=== PATIENT | female | born 1995 | race Caucasian/White ===

== ENCOUNTER → 2018-03-02 | Outpatient (CLI) | payer OTHER | LOC: M RAD 08:49 | DX: Z36.89 Encounter for other specified antenatal screening (principal); Z3A.19 19 weeks gestation of pregnancy | CPT/HCPCS: 76811 ==

== ENCOUNTER → 2018-11-15 | Outpatient (CLI) | payer OTHER ==
[2018-11-17 15:33] LABS: H PYLORI SERUM QUANT IGA <9.0 units (0.0-8.9); H PYLORI SERUM QUANT IGM <9.0 units (0.0-8.9); H PYLORI SERUM QUANT IgG ABY 0.21 (0.00-0.79)
== END ==
LOC: M WUC 14:16
PROVIDERS: ATTEND Family Medicine
DX: R10.13 Epigastric pain (principal)

== ENCOUNTER 2019-04-21 21:27 | Inpatient (IN) | payer OTHER ==
[~2019-04-21] VITALS: Ht 162.6 cm; Wt 77.4 kg
[2019-04-21 21:30] VITALS: BP 157/90
--- NOTE | 2019-04-21 21:52 | HPEPDOC ---
[facility] Medical History & Physical Date of Admission Apr 21, 2019 Date of Service: Apr 21, 2019 Attending Physician: MARVIN ALLISON MD History and Physical TIME OF SERVICE: 1030pm CHIEF COMPLAINT: abdominal pain HISTORY OF PRESENT ILLNESS: This is a 23 yr old F w a PMH of gall stones who was scheduled for elective surgery. This evening after eating fried chicken she developed burning diffuse abdominal that later localized to the left side and epigastric region, followed by sweating, nausea and two episodes of non-bloody emesis. Per d/w , the ED Attending at [facility], her WBC # was 11, Hg was 16.5, Plts were 207, Na was 137, K was 3.5, Cl was 98, Bicarb was 25, BUN was 12, Cr was 0.7, glucose was 124, lipase was >33908, ALT was 184, AST was 94, ALT was 261, and T bili was 1.3. The US of the gallbladder showed findings c/w acute cholecystitis and she was diagnosed w gallstone pancreatitis. He gave her PPI and Ceftriaxone and requested transfer here for surgical evaluation because the do not have surgeons at their facility this week. REVIEW OF SYSTEMS: 12 point review of systems negative except as listed in HPI PAST MEDICAL/ SURGICAL HISTORY: Chronic Asthma SOCIAL HISTORY: -Tobacco + FAMILY HISTORY: +gallstones s/p cholecystectomy (Aunt and Grandmother) ALLERGIES: Please see below. HOME MEDICATIONS: Please see below. PHYSICAL EXAMINATION: VITAL SIGNS: Please see below. GENERAL APPEARANCE: well nourished / well developed/ NAD / not toxic in apperance HEENT: NCAT / MMM&P CARDIOVASCULAR: RRR/NMRG LUNGS: CTAB on RA ABDOMEN: + BS / abdomen not distended / epigastric region tender w palpation / left upper abdomen + for rebound tenderness / neg alcaraz's sign MUSCULOSKELETAL: MEDHAT x 4 extremities INTEGUMENT: no bassett lin's sign, no will's sign NEUROLOGICAL: CN 2-12 grossly intact / speech not dysarthric PSYCHIATRIC: A&Ox 3 / able to understand and follow all commands LABORATORY DATA: see HPI IMAGING: see HPI MICROBIOLOGY: Please see below. ASSESSMENT: is a 23 yr old F w a PMH of gallstones and chronic asthma who will be admitted for management of gallstone pancreatitis. PLAN: 1. Gallstone Pancreatitis Plan: NPO/ IVF / f/u MRCP / f/u w General Surgeon / IV morphine PRN for pain / IV Zofran PRN for n/v / IV PPI 2. Chronic Asthma -patient reports that she has not had to use PRN inhalers for a long time Plan: Albuterol PRN DVT px w SCDs Dispo: pending clinical course. Home Medications Scheduled Omeprazole (Omeprazole) 20 Mg Tablet.dr, 20 MG PO DAILY Paroxetine HCl (Paxil) 20 Mg Tablet, 20 MG PO DAILY Allergies Coded Allergies: No Known Allergies (Unverified , 04/21/19) A-FIB/CHADSVASC A-FIB History Current/History of A-Fib/PAF?: No Current PO Anticoag Therapy: No MARVIN ALLISON MD Apr 21, 2019 21:52
[2019-04-21] MEDS ORDERED: PANTOPRAZOLE 40MG INJ (PROTONIX) (C9113) IV SCH (22:00)
[2019-04-21] MEDS: MORPHINE 4 MG/ML 1ML VIAL/SYRINGE (J2270) IV PRN (22:44)
[2019-04-21] MEDS: NS 1,000 ML IV SCH (22:44)
[2019-04-21] MEDS ORDERED: OMEP20TA9 PO (22:56)
[2019-04-21] MEDS ORDERED: PAXI20TA29 PO (22:56)
[2019-04-21] MEDS: ONDANSETRON 4MG/2ML VIAL (J2405) IV PRN (23:40)
[2019-04-22] VITALS: BP 140/82
[2019-04-22 04:00] VITALS: BP 157/88
[2019-04-22] MEDS: NS 1,000 ML IV SCH ×3 (04:25→20:05)
[2019-04-22] MEDS: MORPHINE 4 MG/ML 1ML VIAL/SYRINGE (J2270) IV PRN ×4 (04:26→20:06)
[2019-04-22 05:38] LABS: HEMATOCRIT 45.1 % (36.0-47.0); MEAN CORPUSCULAR HEMOGLOBIN 29.3 pg (27.0-33.0); MEAN CORPUSCULAR HGB CONC 33.3 g/dl (32.0-36.5); MEAN CORPUSCULAR VOLUME 88.1 fl (80.0-96.0); PLATELET COUNT, AUTOMATED 177 10^3/uL (150-450); RED BLOOD COUNT 5.12 10^6/uL (4.00-5.40); WHITE BLOOD COUNT 9.8 10^3/uL (4.0-10.0)
[2019-04-22 06:00] LABS: ALBUMIN 3.1 GM/DL (3.2-5.2); ALT/SGPT 194 U/L (12-78); BILIRUBIN,TOTAL 0.9 MG/DL (0.2-1.0); BLOOD UREA NITROGEN 10 MG/DL (7-18); CALCIUM LEVEL 8.1 MG/DL (8.5-10.1); CARBON DIOXIDE LEVEL 24 MEQ/L (21-32); CHLORIDE LEVEL 107 MEQ/L (98-107); CREATININE FOR GFR 0.64 MG/DL (0.55-1.30); GLOMERULAR FILTRATION RATE > 60.0 (>60); GLUCOSE, FASTING 102 MG/DL (70-100); MAGNESIUM LEVEL 1.6 MG/DL (1.8-2.4); POTASSIUM SERUM 3.5 MEQ/L (3.5-5.1); SODIUM LEVEL 141 MEQ/L (136-145); TOTAL PROTEIN 5.9 GM/DL (6.4-8.2)
[2019-04-22 07:33] VITALS: BP 140/73
--- NOTE | 2019-04-22 07:56 | IPNPDOC ---
Text Note Date of Service The patient was seen on 04/22/19. NOTE CHIEF COMPLAINT: abdominal pain Subjective: Patient seen and examined at bedside. No acute overnight events reported. Patient feels much better this morning. She is NPO. Objective: General: NAD, lying comfortably in bed HEENT: NC/AT, EOMI Lungs: CTA B/L Heart: +S1S2, RRR Abd: soft, RUQ tenderness, +BS Ext: no edema A/P: 23 yo female presents for gallstone pancreatitis, with PMHx of cholelithiasis, scheduled for elective lap choly 05/07/[address] Urbina. #Gallstone Pancreatitis - NPO/ IVF - f/u MRCP - f/u w General Surgeon - IV morphine PRN for pain / IV Zofran PRN for n/v / IV PPI #Chronic Asthma -patient reports that she has not had to use PRN inhalers for a long time -Albuterol PRN #DVT px w SCDs Dispo: pending clinical course. VS,Fishbone, I+O VS, Fishbone, I+O Laboratory Tests 04/22/19 05:12 Red Blood Count 5.12, Mean Corpuscular Volume 88.1, Mean Corpuscular Hemoglobin 29.3, Mean Corpuscular Hemoglobin Concent 33.3, Red Cell Distribution Width 12.5, Calcium Level 8.1 L, Aspartate Amino Transf (AST/SGOT) 49 H, Alanine Aminotransferase (ALT/SGPT) 194 H, Alkaline Phosphatase 138 H, Total Bilirubin 0.9, Total Protein 5.9 L, Albumin 3.1 L Vital Signs Date Time Temp Pulse Resp B/P (MAP) Pulse Ox O2 Delivery O2 Flow Rate FiO2 04/22/19 07:33 98.7 99 18 140/73 (95) 100 I&O- Last 24 Hours up to 6 AM 04/22/19 05:59 Intake Total 600 ml Output Total 250 ml Balance 350 ml LIZA ALMEIDA MD Apr 22, 2019 07:56
[2019-04-22] MEDS: PANTOPRAZOLE 40MG INJ (PROTONIX) (C9113) IV SCH (08:22)
[2019-04-22] MEDS: PARoxetine 20 MG TAB PO SCH (08:22)
[2019-04-22 08:48] LABS: LIPASE 13716 U/L (73-393)
[2019-04-22] MEDS ORDERED: PANTOPRAZOLE 40MG INJ (PROTONIX) (C9113) IV SCH (09:00)
[2019-04-22 11:41] VITALS: BP 121/70
[2019-04-22] MEDS: ONDANSETRON 4MG/2ML VIAL (J2405) IV PRN ×3 (12:19→20:05)
[2019-04-22] MEDS ORDERED: PROHANCE 279.3MG/ML 15ML VIAL (A9576) As Ordered ONE (13:00)
[2019-04-22 15:41] VITALS: BP 133/77
[2019-04-22 20:00] VITALS: BP 158/86
[2019-04-23] VITALS: BP 144/73
[2019-04-23] MEDS ORDERED: MAG SULF 1GM/100ML (MAG RUN) 1 GM in IV 1 EA IV ONE ×2 (01:00→02:00)
[2019-04-23] MEDS: NS 1,000 ML IV SCH ×3 (03:00→13:39)
[2019-04-23 04:00] VITALS: BP 143/81
[2019-04-23] MEDS: MORPHINE 4 MG/ML 1ML VIAL/SYRINGE (J2270) IV PRN (05:10)
[2019-04-23] MEDS: ONDANSETRON 4MG/2ML VIAL (J2405) IV PRN (05:10)
[2019-04-23 06:11] LABS: ALBUMIN 3.1 GM/DL (3.2-5.2); ALT/SGPT 147 U/L (12-78); BILIRUBIN,TOTAL 0.9 MG/DL (0.2-1.0); BLOOD UREA NITROGEN 6 MG/DL (7-18); CARBON DIOXIDE LEVEL 26 MEQ/L (21-32); CHLORIDE LEVEL 105 MEQ/L (98-107); CREATININE FOR GFR 0.56 MG/DL (0.55-1.30); GLOMERULAR FILTRATION RATE > 60.0 (>60); GLUCOSE, FASTING 74 MG/DL (70-100); LIPASE 3121 U/L (73-393); MAGNESIUM LEVEL 2.3 MG/DL (1.8-2.4); POTASSIUM SERUM 3.3 MEQ/L (3.5-5.1); SODIUM LEVEL 140 MEQ/L (136-145); TOTAL PROTEIN 6.4 GM/DL (6.4-8.2)
--- NOTE | 2019-04-23 06:46 | CR ---
DATE OF CONSULTATION: 04/22/2019 REASON FOR CONSULTATION: Cholelithiasis with gallstone pancreatitis. HISTORY OF PRESENT ILLNESS: The patient is a pleasant 23-year-old woman with known gallstones. She had seen my partner Dr. Urbina on 04/17/2019 in the office. She was scheduled for a laparoscopic cholecystectomy electively on 05/07/2019. The patient following a meal on the afternoon of 04/21/2019, developed severe upper abdominal pain with some nausea and vomiting. She was seen at [facility] where she was found to have a markedly elevated lipase level and a CT scan showed significant edema of the pancreas with some free abdominal fluid. She was transferred to [facility] where she was admitted by one of the hospitalists. I am now asked to evaluate the patient regarding her gallstone pancreatitis. ALLERGIES: The patient denies any known allergies to medications. MEDICATIONS: Her only regular medications are omeprazole and paroxetine. PAST SURGICAL HISTORY: The patient has had no prior surgery. MEDICAL HISTORY: Significant for asthma. SOCIAL HISTORY: She is and has two children. She denies any tobacco use. FAMILY HISTORY: Significant for cholelithiasis in her aunt and grandmother. REVIEW OF SYSTEMS: Reveals no history of cardiac, respiratory or GI symptoms other than those associated with her gallstones and her asthma. She denies any dysuria or hematuria. She has no history of deep vein thrombosis (DVT) or pulmonary embolus. She has no other active medical issues. PHYSICAL EXAMINATION: Reveals a pleasant young woman with mild to moderate obesity. She is alert and oriented. She is lying quietly on the hospital bed with one of her children when I came to see her. Sclerae are anicteric. Neck is supple without mass. Heart exam shows a regular rhythm which is not tachycardiac. The lungs are clear. The abdomen is somewhat protuberant. She has some bowel sounds present. She has some mild to moderate direct tenderness in the epigastrium. LABORATORY STUDIES: From last night include a lipase that was greater than 28,000. The white count was 11, hemoglobin was 16 and platelets were 207,000. Her total bilirubin was 1.3 and her AST and ALT were 94 and 261. This morning, her lipase is down to 13,700. LFTs are not significantly changed. IMPRESSION: The patient clearly has pancreatitis based on the CT findings and her marked elevation of the lipase. She has known gallstones. Therefore, it is reasonable to assume that the pancreatitis is due to the gallstones as she has no other evident risk factors. PLAN: I would agree with the scheduled MRI/MRCP to look for evidence of retained common bile duct stones. If common bile duct stones are identified, then an ERCP is warranted. If there are no stones seen in the bile duct then it is only a matter of waiting until her pancreatitis resolves to a point where cholecystectomy would be reasonable. I suspect that given the degree of hyperlipasemia and edema of the pancreas seen by CT that we will wish to wait for more than just a few days for her pancreatitis to resolve. I will speak with Dr. Urbina who had seen the patient in the office to see if he would be willing to assume her care as I will be going out of town here in the next 2 days.
[2019-04-23 07:38] VITALS: BP 139/61
[2019-04-23] MEDS: PARoxetine 20 MG TAB PO SCH (07:49)
[2019-04-23] MEDS: PANTOPRAZOLE 40MG INJ (PROTONIX) (C9113) IV SCH (07:50)
--- NOTE | 2019-04-23 08:07 | REP ---
MRCP: MRCP examination is accomplished utilizing multiple heavily T2 weighted sequences in the axial and coronal planes with MIP reconstruction images. Comparison is made with prior ultrasound at [facility] 03/26/2019. The gallbladder demonstrates multiple filling defects in the dependant portion consistent with multiple gallstones. The largest measures 9 mm. Gallbladder wall is 3 mm, at the upper limits of normal. There is no intrahepatic or extrahepatic biliary dilatation. Common bile duct has a maximum diameter of 4 mm. There is no evidence of choledocholithiasis. The is no pancreatic duct dilatation. There is mild free fluid scattered throughout the abdomen. In addition there is ill-defined high signal throughout the pancreas suggesting pancreatitis. Otherwise the visualized portions of the liver, spleen, adrenals, and kidneys are unremarkable. No definite adenopathy is seen. IMPRESSION: Multiple subcentimeter gallstones in the gallbladder. Gallbladder wall is upper limits of normal in thickness. No intrahepatic or extrahepatic biliary dilatation and no evidence of choledocholithiasis. Diffuse ill-defined high signal on T2 weighted images throughout the pancreas suggests pancreatitis. Mild scattered free fluid throughout the abdomen. Electronically Signed by Reginaldo Nixon MD 04/24/2019 10:11 A
--- NOTE | 2019-04-23 08:27 | REP ---
MRI ABDOMEN WITH AND WITHOUT CONTRAST: TECHNIQUE: Multiple sequences were obtained in the axial and coronal planes prior to and following the intravenous administration of 14 mL ProHance. No mass is seen in the visualized liver. The spleen is normal in size with no intrinsic abnormality. The adrenals and kidneys are unremarkable. There is no hydronephrosis. There is mild diffuse enlargement of the pancreas with ill defined high signal on T2 weighted images scattered throughout the pancreatic parenchyma compatible with pancreatitis. No pancreatic duct dilatation is seen. Gallbladder demonstrates multiple subcentimeter stones in the lumen. The gallbladder wall was not significantly thickened. Common bile duct is not dilated. There is no evidence of choledocholithiasis. There is mild scattered free fluid throughout the abdomen. There is no evidence of adenopathy. IMPRESSION: Findings compatible with pancreatitis. There is mild ascites in the abdomen. Multiple subcentimeter gallstones in the gallbladder. No biliary dilatation or evidence of choledocholithiasis. Electronically Signed by Reginaldo Nixon MD 04/24/2019 10:46 A
[2019-04-23 11:54] VITALS: BP 135/82
[2019-04-23] MEDS ORDERED: oxyCODONE 5MG TAB PO PRN (14:00)
--- NOTE | 2019-04-23 14:02 | IPNPDOC ---
Text Note Date of Service The patient was seen on 04/23/19. NOTE Subjective: -Continues to have moderate epigastric pain and nervous about eating and the plan of a discharge home before cholecystectomy as she is anxious that she will be just back here if she eats ROS: -Pertinent positives: Much improved but still present now mild epigastric pain -Pertinent negatives: No fever, chills, nausea, emesis Objective: General: well appearing, pleasant, conversing comfortably with spouse who was at bedside Eyes: Anicteric Skin: no jaundice Pulm: CTAB, no rales, rhonchi or wheezing Cardiac: S1S2, RRR, no murmurs, rubs or gallops Abdomen: Baseline distention (per patient), normoactive bowel sounds, tender epigastrum on deep palpation, otherwise negative Sharpe's, no hepatosplenomegaly Extremities: WWP, no edema Assessment: 23 yo woman who is admitted for gallstone pancreatitis, with PMHx of cholelithiasis, scheduled for elective lap audra 05/07/[address] Urbina but wanted to discuss with surgeon the possibility of predischarge audra. #Gallstone Pancreatitis - f/u offical MRCP read, prelim with no evidence of choledocholithiasis - f/u w General Surgeon outpatient - Switch IV morphine PRN to 5mg PO PRN - Will plan for [id number] discharge home given no evidence of ductal stones and no indication of ERCP. - DC IV protonix, continue PRN zofran #Chronic Asthma -patient reports that she has not had to use PRN inhalers for a long time -Albuterol PRN #DVT px w SCDs Dispo: pending clinical course and patient discussion with surgeon per patient request, will otherwise plan for AM discharge 04/24. VS,Fishbone, I+O VS, Fishbone, I+O Laboratory Tests 04/23/19 05:08 Calcium Level 8.0 L, Aspartate Amino Transf (AST/SGOT) 36, Alanine Aminotransferase (ALT/SGPT) 147 H, Alkaline Phosphatase 124 H, Total Bilirubin 0.9, Total Protein 6.4, Albumin 3.1 L Vital Signs Date Time Temp Pulse Resp B/P (MAP) Pulse Ox O2 Delivery O2 Flow Rate FiO2 04/23/19 11:54 97.7 96 18 135/82 (99) 98 I&O- Last 24 Hours up to 6 AM 04/23/19 06:00 Intake Total 3200 ml Output Total 1700 ml Balance 1500 ml ANURADHA PICKARD MD Apr 23, 2019 14:02
[2019-04-23 15:55] VITALS: BP 141/80
[2019-04-23] MEDS ORDERED: POTASSIUM CHLORIDE 10 MEQ SR TABLET PO ONE (16:00)
[2019-04-23 20:00] VITALS: BP 132/78
[2019-04-24 04:00] VITALS: BP 135/75
[2019-04-24 06:01] LABS: ALBUMIN 3.2 GM/DL (3.2-5.2); ALT/SGPT 116 U/L (12-78); BILIRUBIN,TOTAL 1.1 MG/DL (0.2-1.0); BLOOD UREA NITROGEN 7 MG/DL (7-18); CALCIUM LEVEL 8.5 MG/DL (8.5-10.1); CARBON DIOXIDE LEVEL 21 MEQ/L (21-32); CHLORIDE LEVEL 105 MEQ/L (98-107); CREATININE FOR GFR 0.52 MG/DL (0.55-1.30); GLOMERULAR FILTRATION RATE > 60.0 (>60); GLUCOSE, FASTING 62 MG/DL (70-100); POTASSIUM SERUM 3.5 MEQ/L (3.5-5.1); SODIUM LEVEL 138 MEQ/L (136-145); TOTAL PROTEIN 6.6 GM/DL (6.4-8.2)
[2019-04-24 08:00] VITALS: BP 143/84
[2019-04-24] MEDS: PARoxetine 20 MG TAB PO SCH (08:26)
[2019-04-24] MEDS ORDERED: SLF 3 ML SYR IV PRN (09:00)
[2019-04-24 09:28] LABS: LIPASE 467 U/L (73-393)
[2019-04-24] MEDS: SLF 3 ML SYR IV SCH ×2 (14:51→21:04)
--- NOTE | 2019-04-24 15:24 | IPNPDOC ---
Text Note Date of Service The patient was seen on 04/24/19. NOTE Subjective: -Feels well this morning -Excited that she will be having her lap audra tomorrow morning per surgery ROS: -Pertinent positives: mild epigastric pain -Pertinent negatives: No fever, chills, nausea, emesis The 12 point ROS was reviewed and was otherwise negative except for the mild epigastric pain mentioned above Objective: General: well appearing, pleasant, conversant Eyes: Anicteric, no pallor Skin: no jaundice Pulm: CTAB, no rales, rhonchi or wheezing Cardiac: S1S2, RRR, no murmurs, rubs or gallops Abdomen: normoactive bowel sounds, tender epigastrum on deep palpation, no organomegaly Extremities: WWP, no edema Assessment: 23 yo woman who was admitted for gallstone pancreatitis, with PMHx of cholelithiasis with much improved symptoms and labs now tentatively scheduled for elective lap audra tomorrow morning. #Gallstone Pancreatitis -much improved, no symptoms and labs downtrended -plan for lap audra tomorrow -NPO at midnight, currently on clear liquid diet #Chronic Asthma -Albuterol PRN #DVT px w SCDs Dispo: pending lap audra VS,Fishbone, I+O VS, Fishbone, I+O Laboratory Tests 04/24/19 05:12 Calcium Level 8.5, Aspartate Amino Transf (AST/SGOT) 28, Alanine Aminotransferase (ALT/SGPT) 116 H, Alkaline Phosphatase 110, Total Bilirubin 1.1 H, Total Protein 6.6, Albumin 3.2 Vital Signs Date Time Temp Pulse Resp B/P (MAP) Pulse Ox O2 Delivery O2 Flow Rate FiO2 04/24/19 08:00 96.5 103 18 143/84 (103) 97 I&O- Last 24 Hours up to 6 AM 04/24/19 06:00 Intake Total 1320 ml Output Total 1400 ml Balance -80 ml ANURADHA PICKARD MD Apr 24, 2019 15:24
[2019-04-24 15:35] VITALS: BP 147/97
[2019-04-24 18:30] LABS: URINE PREG TEST NEGATIVE (NEGATIVE)
--- NOTE | 2019-04-24 19:36 | IPN ---
DATE: 04/23/2019 The patient seems to clinically be doing much better than she was and we will start her on a clear liquid diet. Overall, her chemistries appear better than they were yesterday with her lipase dropping down nicely. Her abdominal pain is much better and she only has some minimal discomfort. She has been afebrile and otherwise, no other complaints at this time. PHYSICAL EXAMINATION: Her abdomen is soft, nondistended, mildly tender in the midepigastric area without significant rebound or peritoneal signs. Extremities are warm and well-perfused. IMPRESSION AND PLAN: The patient has evidence of resolving gallstone pancreatitis and we will see how she is doing tomorrow. If she is doing well, we may consider her for a laparoscopic cholecystectomy prior to discharge or continue with her planned laparoscopic cholecystectomy on 05/07/2019. In any case, we will once again see how she does with clear liquids overnight and then determine our next course of action tomorrow.
--- NOTE | 2019-04-24 19:39 | IPN ---
DATE: 04/24/2019 The patient continues to make some significant improvement and overall, her lipase continues to plummet down to 467 and I anticipate tomorrow it should be within normal range. She has been afebrile and she overall has no abdominal complaints. She states she has minimal discomfort at this point in the mid epigastric area but otherwise feels pretty good and was hoping that we would proceed with a laparoscopic cholecystectomy prior to discharge instead of being discharged home and she has concerns that she might have recurrence of pancreatitis. IMPRESSION AND PLAN: The patient seems to be doing well at this point and given her significant progress and improvement of her abdominal pain, I do feel that it is reasonable to proceed with a laparoscopic cholecystectomy. We will schedule her tomorrow for a laparoscopic cholecystectomy. The risks as well as benefits have been discussed with her at length, those including but not limited to infection, bleeding, damage to surrounding structures including liver, pancreas, bile ducts, duodenum, bowel, and with worsening pancreatitis, etcetera. She understands and would like proceed with this as scheduled. We will make sure that she is nothing by mouth after midnight and we will plan on giving a preoperative dose of antibiotics.
[2019-04-24 22:36] VITALS: BP 138/92
[2019-04-25] MEDS: SLF 3 ML SYR IV SCH (06:00)
[2019-04-25 06:27] LABS: ALBUMIN 3.5 GM/DL (3.2-5.2); ALT/SGPT 97 U/L (12-78); BLOOD UREA NITROGEN 5 MG/DL (7-18); CARBON DIOXIDE LEVEL 21 MEQ/L (21-32); CHLORIDE LEVEL 102 MEQ/L (98-107); CREATININE FOR GFR 0.58 MG/DL (0.55-1.30); GLOMERULAR FILTRATION RATE > 60.0 (>60); GLUCOSE, FASTING 79 MG/DL (70-100); POTASSIUM SERUM 3.3 MEQ/L (3.5-5.1); SODIUM LEVEL 135 MEQ/L (136-145); TOTAL PROTEIN 7.7 GM/DL (6.4-8.2)
[2019-04-25 07:18] VITALS: BP_SYST 128; BP_SYST 133; BP_DIAS 80
[2019-04-25] MEDS ORDERED: KCL 10MEQ/100ML SWI (KRUN) 10 MEQ in IV 1 EA IV ONE (08:15)
[2019-04-25] MEDS ORDERED: ONDANSETRON 4MG/2ML VIAL (J2405) As Ordered ONE (09:57)
[2019-04-25] MEDS ORDERED: KETOROLAC 60 MG/2 ML VIAL (J1885) As Ordered ONE (09:57)
[2019-04-25] MEDS ORDERED: SUGAMMADEX SODIUM 500 MG/5 ML VIAL (BRIDION) As Ordered ONE (09:57)
[2019-04-25] MEDS ORDERED: LIDOCAINE 2% INJ 100 MG/5 ML SDV (FOR ANES.) As Ordered ONE (09:57)
[2019-04-25] MEDS ORDERED: propofoL 200 MG/20 ML VIAL As Ordered ONE (09:57)
[2019-04-25] MEDS ORDERED: fentaNYL 250 MCG/5 ML INJECTION (J3010) As Ordered ONE (09:57)
[2019-04-25] MEDS ORDERED: dexameTHASONE 4 MG/ML 1ML VIAL (J1100) As Ordered ONE (09:57)
[2019-04-25] MEDS ORDERED: MIDAZOLAM INJ 2 MG/2 ML VIAL (J2250) As Ordered ONE (09:57)
[2019-04-25] MEDS ORDERED: ACETAMINOPHEN 1000MG 100ML IV BTL (OFIRMEV) (J0131 PER 10MG) As Ordered ONE (09:57)
[2019-04-25] MEDS ORDERED: ROCURONIUM BROMIDE 50 MG/5 ML VIAL As Ordered ONE (09:57)
[2019-04-25] MEDS ORDERED: PHENYLephrine HCL 500 MCG/5 ML (100MCG/ML) SYRINGE (J2370) As Ordered ONE (10:05)
[2019-04-25] MEDS ORDERED: BUPIVACAINE/EPIN 0.25% 30 ML VIAL As Ordered ONE (10:41)
[2019-04-25] MEDS ORDERED: ceFAZolin 2 GM/D5W 50 ML IV BAG (J0690 PER 500MG) As Ordered ONE (10:42)
[2019-04-25] MEDS ORDERED: NORCO, ANEXSIA 5/325MG TABLET (HYDROcodone/ACETAMINOPHEN) PO PRN (10:45)
[2019-04-25 11:30] VITALS: BP 124/68
[2019-04-25 12:00] VITALS: BP 121/68
[2019-04-25] MEDS: PARoxetine 20 MG TAB PO SCH (12:34)
[2019-04-25] MEDS ORDERED: IBUP-1022 PO (12:56)
[2019-04-25] MEDS ORDERED: HYDR-4571 PO (12:56)
[2019-04-25 13:00] VITALS: BP 121/69
[2019-04-25] MEDS ORDERED: IBUPROFEN 600 MG TAB PO SCH (16:00)
--- NOTE | 2019-04-26 20:49 | DS.PDOC ---
Discharge Summary General Date of Admission Apr 21, 2019 at 21:27 Date of Discharge 04/25/2019 Attending Physician: ANURADHA PICKARD MD Specialist/Consultants Involve: Itz Urbina Jr Discharge Summary PROCEDURES PERFORMED DURING STAY: laparoscopic cholecystectomy ADMITTING DIAGNOSES: 1. Acute pancreatitis DISCHARGE DIAGNOSES: 1. Acute gallstone pancreatitis 2. Cholecystitis 3. Asthma COMPLICATIONS/CHIEF COMPLAINT: Acute Pancreatitis. HISTORY OF PRESENT ILLNESS: 23 yr old woman with a history of gall stones who was scheduled for elective surgery but before she could have it, one evening after eating fried chicken she developed acute burning diffuse abdominal that later localized to the left side and epigastric region, followed by sweating, nausea and two episodes of non-bloody emesis. She presented to the [facility] ED where her WBC was 11 and lipase was >03303, ALT 184, AST 94, ALT 261, and T bili was 1.3. An US of the gallbladder showed findings consistent with acute cholecystitis and she was diagnosed with gallstone pancreatitis. While at [facility] she was given protonix and Ceftriaxone and requested transfer here for surgical evaluation because the did not have surgeons at their facility during that time. HOSPITAL COURSE: At [facility], she was admitted to internal medicine and surgery was consulted. A decision was made to pursue an MRI/MRCP to look for evidence of retained common bile duct stones with a plan that if common bile duct stones were identified, then they would proceed with an ERCP and if they were not present, then they would wait until her pancreatitis resolves to a point where cholecystectomy would be reasonable. Her pancreatitis was thus managed with aggressive fluids and NPO status with mild pain control. She improved over a few days and her labs improved as well to the extent that the decision was made to proceed with cholecystectomy predischarge. She had an uncomplicated lap audra on 04/25/2019 and is now being discharged home a few hours after surgery. DISCHARGE MEDICATIONS: Please see below. ALLERGIES: Please see below. PHYSICAL EXAMINATION ON DISCHARGE: VITAL SIGNS: Please see below. General: well appearing, pleasant, conversant Eyes: Anicteric, no pallor Skin: no jaundice Pulm: CTAB, no rales, rhonchi or wheezing Cardiac: S1S2, RRR, no murmurs, rubs or gallops Abdomen: normoactive bowel sounds, tender epigastrum on deep palpation, no org anomegaly Extremities: WWP, no edema LABORATORY DATA: Please see below. IMAGIN04/22/2019: MRI abdomen: Findings compatible with pancreatitis. There is mild ascites in the abdomen. Multiple subcentimeter gallstones in the gallbladder. No biliary dilatation or evidence of choledocholithiasis PROGNOSIS: Excellent ACTIVITY: as tolerated DIET: as tolerated DISCHARGE PLAN: Home to follow up outpatient with PCP and Dr. Urbina DISPOSITION: 01 Home, Self-Care. DISCHARGE INSTRUCTIONS: 1. To follow up with Dr. Urbina and your PCP within 2 weeks ITEMS TO FOLLOWUP ON ON OUTPATIENT: 1. Post lap audra follow up 2. PCP follow up DISCHARGE CONDITION: Good TIME SPENT ON DISCHARGE: Greater than 30 minutes. Vital Signs/I&Os Vital Signs Date Time Temp Pulse Resp B/P (MAP) Pulse Ox O2 Delivery O2 Flow Rate FiO2 04/25/19 13:00 98.6 95 19 121/69 (86) 99 I&O- Last 24 Hours up to 6 AM 04/26/19 06:00 Intake Total 780 ml Output Total 10 ml Balance 770 ml Discharge Medications Scheduled Ibuprofen (Ibuprofen) 600 Mg Tablet, 600 MG PO TID Omeprazole (Omeprazole) 20 Mg Tablet.dr, 20 MG PO DAILY, (Reported) Paroxetine HCl (Paxil) 20 Mg Tablet, 20 MG PO DAILY, (Reported) Scheduled PRN Hydrocodone/Acetaminophen (Hydrocodone-Acetamin 5-325 mg) 1 Each Tablet, 1 TAB PO Q4HP PRN for MILD/MODERATE PAIN (PS 1-7) Allergies Coded Allergies: apple (Verified Allergy, Intermediate, MOUTH SWELLING/ITCHING, 04/22/19) strawberry (Verified Allergy, Intermediate, mouth swelling and itching, 04/22/19) ANURADHA PICKARD MD Apr 26, 2019 20:49
--- NOTE | 2019-05-10 10:49 | RO ---
DATE OF PROCEDURE: 04/25/2019 PREOPERATIVE DIAGNOSIS: Gallstone pancreatitis. POSTOPERATIVE DIAGNOSIS: Gallstone pancreatitis. PROCEDURE: Laparoscopic cholecystectomy. SURGEON: Dr. Itz Urbina. BUNDLE PERSON: ANESTHESIA: General endotracheal anesthesia. ESTIMATED BLOOD LOSS: Minimal. FLUIDS: Crystalloid. DESCRIPTION OF PROCEDURE: The patient was brought to the operating room and was given general anesthesia. After adequate anesthesia and preoperative antibiotics were given, the patient was prepped and draped in sterile fashion. Next a supraumbilical incision was made with skin knife. Blunt dissection was carried down to fascia. Veress needle placed into the abdominal cavity insufflated to 15 mm pressure and a dilating 10 mm trocar was placed. Under direct visualization an epigastric and two lateral trocars were placed. Gallbladder was grasped, retracted superiorly and then the neck of the gallbladder was cleared of peritoneum on the lateral aspect across the anterior surface and medial as well. The neck of the gallbladder was then further cleared of surrounding structures using some minimal blunt dissection as well as electrocautery and the hook cautery and eventually the cystic duct, cystic artery was well visualized and then a better window behind the neck of the gallbladder was created up to the cystic plate area. The cystic artery was clipped proximally and distally and transected and then the neck of the gallbladder and the cystic duct area was further dissected out and the cystic duct was clipped proximally and distally and transected and the gallbladder was taken from the gallbladder bed using electrocautery. This was placed in an EndoCatch bag brought out through the umbilicus. The right upper quadrant was copiously irrigated until clear. All trocars removed under direct visualization. 0 Vicryl was used close fascia at the umbilicus and all incisions were closed with #4-0 Vicryl. Steri-Strips and dry sterile dressing was applied. The patient was awakened from anesthesia, extubated, brought to the recovery room awake, alert and hemodynamically stable. Sponge and needle counts correct times two.
== END 2019-04-25 14:15 | disposition home or self-care (01) | DRG 263 ==
LOC: M PCU 21:27 → M MS5PR 04-24 15:35
PROVIDERS: ADMIT Internal Medicine; ATTEND Internal Medicine
PROC: 0FT44ZZ Resection of Gallbladder, Percutaneous Endoscopic Approach (ICD-10-PCS; principal; 2019-04-25 09:30)
DX: K80.00 Calculus of gallbladder with acute cholecystitis without obstruction (principal); K85.90 Acute pancreatitis without necrosis or infection, unspecified; J45.909 Unspecified asthma, uncomplicated; Z91.038 Other insect allergy status

== ENCOUNTER 2021-04-23 17:37 | Emergency (ER) | payer OTHER ==
[~2021-04-23] VITALS: Ht 162.6 cm; Wt 93.6 kg
[~2021-04-23 17:37] MED LIST: HYDR-4571 PO; IBUP-1022 PO; OMEP20TA2 PO; PAXI20TA29 PO
[2021-04-23 18:42] LABS: BASO % 0.2 % (0.0-1.0); EOS # 0.1 10^3/uL (0.0-0.5); EOS % 0.6 % (0.0-3.0); HEMATOCRIT 44.6 % (36.0-47.0); HEMOGLOBIN 15.1 g/dl (12.0-15.5); LYMPH # 1.6 10^3/uL (1.5-5.0); MEAN CORPUSCULAR HEMOGLOBIN 29.4 pg (27.0-33.0); MEAN CORPUSCULAR HGB CONC 33.9 g/dl (32.0-36.5); MEAN CORPUSCULAR VOLUME 86.9 fl (80.0-96.0); MONO # 0.5 10^3/uL (0.0-0.8); MONO % 5.4 % (2.0-8.0); NEUTROPHILS # 7.5 10^3/uL (1.5-8.5); NEUTROPHILS % 77.6 % (36.0-66.0); PLATELET COUNT, AUTOMATED 192 10^3/uL (150-450); RED BLOOD COUNT 5.13 10^6/uL (4.00-5.40); WHITE BLOOD COUNT 9.7 10^3/uL (4.0-10.0)
[2021-04-23 19:15] LABS: ALBUMIN 4.2 GM/DL (3.2-5.2); ALT/SGPT 31 U/L (12-78); BILIRUBIN,DIRECT 0.1 MG/DL (0.0-0.2); BILIRUBIN,TOTAL 0.3 MG/DL (0.2-1.0); BLOOD UREA NITROGEN 8 MG/DL (7-18); CALCIUM LEVEL 8.9 MG/DL (8.5-10.1); CARBON DIOXIDE LEVEL 28 MEQ/L (21-32); CHLORIDE LEVEL 107 MEQ/L (98-107); CK-MB VALUE MASS < 1.0 NG/ML (<3.6); CPK CREATINE PHOSPHOKINASE 122 U/L (26-192); CREATININE FOR GFR 0.72 MG/DL (0.55-1.30); GLOMERULAR FILTRATION RATE > 60.0 (>60); GLUCOSE, FASTING 102 MG/DL (70-100); LIPASE 118 U/L (73-393); MB/CK RELATIVE INDEX 0.82 (< OR =4); POTASSIUM SERUM 3.9 MEQ/L (3.5-5.1); SODIUM LEVEL 141 MEQ/L (136-145); TOTAL PROTEIN 7.6 GM/DL (6.4-8.2); TROPONIN I < 0.02 NG/ML (< 0.10)
[2021-04-23 20:30] VITALS: BP 124/78
--- NOTE | 2021-04-25 19:48 | ECGEPIP ---
[facility] - ED Test Date: 2021-04-23 Pat Name: MADAY QUINTANA Department: Room: - Gender: Female [employer]: Elida REEDER : 1995 Requested By: REID IRVIN Order Number: [id number] Reading MD: Kiki Feliciano Measurements Intervals [place] Rate: 77 P: 49 VT: 130 QRS: 59 QRSD: 90 T: 23 QT: 396 QTc: 448 Interpretive Statements Normal sinus rhythm No prior Electronically Signed on 04-25-2021 19:48:16 EDT by Kiki Feliciano
== END 2021-04-23 20:43 | disposition home or self-care (01) ==
LOC: M ED 17:37
DX: F41.0 Panic disorder [episodic paroxysmal anxiety] (principal); R07.9 Chest pain, unspecified; Z91.018 Allergy to other foods

== ENCOUNTER → 2021-09-29 | Outpatient (CLI) | payer OTHER | LOC: M WUC 11:15 | PROVIDERS: ATTEND Internal Medicine Gastroenterology | DX: R10.9 Unspecified abdominal pain (principal) ==

== ENCOUNTER 2021-11-29 10:41 | Day surgery (SDC) | payer MEDICAID ==
[~2021-11-29] VITALS: Ht 162.6 cm; Wt 100.7 kg
[~2021-11-29 10:41] MED LIST changes: +CLON0.5T2; +NS 1,000 ML IV ONE
[2021-11-29] MEDS ORDERED: propofoL 200 MG/20 ML VIAL As Ordered ONE (12:42)
[2021-11-29] MEDS ORDERED: LIDOCAINE 2% 100MG/5ML SDV (FOR ANES.) As Ordered ONE (12:42)
[2021-11-29] MEDS ORDERED: fentaNYL 100 MCG/2 ML INJECTION As Ordered ONE (12:42)
[2021-11-29 13:40] VITALS: BP 127/73
== END 2021-11-29 13:53 | disposition home or self-care (01) ==
LOC: M OPP 10:41
PROVIDERS: ATTEND Internal Medicine Gastroenterology
DX: K29.50 Unspecified chronic gastritis without bleeding (principal); R10.13 Epigastric pain; Z79.899 Other long term (current) drug therapy; Z91.018 Allergy to other foods
CPT/HCPCS: 43239; 88305; J3010

== ENCOUNTER → 2023-11-16 | Outpatient (REF) | payer OTHER ==
[~2023-11-16] MED LIST changes: -NS 1,000 ML IV ONE; -PAXI20TA29 PO; +PAXI20TA30 PO
== END ==
LOC: M PLALAB 15:46
PROVIDERS: ATTEND Advanced Practice Midwife
DX: O26.859 Spotting complicating pregnancy, unspecified trimester (principal); Z3A.00 Weeks of gestation of pregnancy not specified

== ENCOUNTER → 2023-11-16 | Outpatient (CLI) | payer OTHER ==
[2023-11-16 17:58] LABS: HEMATOCRIT 41.2 % (36.0-47.0); HEMOGLOBIN 13.9 g/dl (12.0-15.5); MEAN CORPUSCULAR HEMOGLOBIN 29.6 pg (27.0-33.0); MEAN CORPUSCULAR HGB CONC 33.7 g/dl (32.0-36.5); MEAN CORPUSCULAR VOLUME 87.8 fl (80.0-96.0); PLATELET COUNT, AUTOMATED 163 10^3/uL (150-450); RED BLOOD COUNT 4.69 10^6/uL (4.00-5.40); WHITE BLOOD COUNT 11.7 10^3/uL (4.0-10.0)
[2023-11-16 18:37] LABS: HIV 1&2 SCREEN NEGATIVE (NEGATIVE)
[2023-11-16 18:46] LABS: HEPATITIS C VIRUS ABY INDEX < 0.02 INDEX (<0.8)
[2023-11-16 19:53] LABS: GC DNA AMPLIFICATION NEGATIVE (NEGATIVE)
== END ==
LOC: M PLALAB 15:48
PROVIDERS: ATTEND Advanced Practice Midwife
DX: Z34.81 Encounter for supervision of other normal pregnancy, first trimester (principal); Z3A.00 Weeks of gestation of pregnancy not specified

== ENCOUNTER → 2023-12-14 | Outpatient (REF) | payer OTHER | LOC: M PLALAB 10:54 | PROVIDERS: ATTEND Advanced Practice Midwife | DX: Z34.82 Encounter for supervision of other normal pregnancy, second trimester (principal) ==

== ENCOUNTER → 2024-01-22 | Outpatient (CLI) | payer OTHER | LOC: M WHC 10:13 | PROVIDERS: ATTEND Advanced Practice Midwife | DX: Z34.82 Encounter for supervision of other normal pregnancy, second trimester (principal); Z3A.19 19 weeks gestation of pregnancy ==

== ENCOUNTER → 2024-03-01 | Outpatient (CLI) | payer OTHER | LOC: M WHC 12:09 | PROVIDERS: ATTEND Advanced Practice Midwife | DX: O99.342 Other mental disorders complicating pregnancy, second trimester (principal); Z3A.25 25 weeks gestation of pregnancy ==

== ENCOUNTER → 2024-03-07 | Outpatient (CLI) | payer OTHER ==
[2024-03-07 14:12] LABS: HEMATOCRIT 37.1 % (36.0-47.0); HEMOGLOBIN 12.4 g/dl (12.0-15.5); MEAN CORPUSCULAR HEMOGLOBIN 30.3 pg (27.0-33.0); MEAN CORPUSCULAR HGB CONC 33.4 g/dl (32.0-36.5); MEAN CORPUSCULAR VOLUME 90.7 fl (80.0-96.0); PLATELET COUNT, AUTOMATED 157 10^3/uL (150-450); RED BLOOD COUNT 4.09 10^6/uL (4.00-5.40); WHITE BLOOD COUNT 8.2 10^3/uL (4.0-10.0)
[2024-03-07 14:35] LABS: GLUCOSE CHALLENGE TEST 1 HOUR 121 MG/DL (LESS THAN 140)
[2024-03-07 15:11] LABS: HIV 1&2 SCREEN NEGATIVE (NEGATIVE)
== END ==
LOC: M PLALAB 10:42
PROVIDERS: ATTEND Advanced Practice Midwife
DX: O99.342 Other mental disorders complicating pregnancy, second trimester (principal); Z3A.00 Weeks of gestation of pregnancy not specified

== ENCOUNTER → 2024-05-14 | Outpatient (CLI) | payer OTHER | LOC: M WHC 08:16 | PROVIDERS: ATTEND Advanced Practice Midwife | DX: O26.843 Uterine size-date discrepancy, third trimester (principal); Z3A.36 36 weeks gestation of pregnancy ==

== ENCOUNTER → 2024-05-17 | Outpatient (REF) | payer OTHER | LOC: M SFHCWAGY 16:53 | PROVIDERS: ATTEND Obstetrics & Gynecology | DX: Z36.85 Encounter for antenatal screening for Streptococcus B (principal); Z3A.36 36 weeks gestation of pregnancy ==

== ENCOUNTER 2024-06-13 09:47 | Inpatient (IN) | payer OTHER ==
[~2024-06-13] VITALS: Ht 162.6 cm; Wt 112.4 kg
[2024-06-13] VITALS (34 sets, daily range): BP systolic 81–167; BP diastolic 42–106; O2SAT 96–99
[2024-06-13] MEDS ORDERED: TUMS500C PO (09:57)
[2024-06-13] MEDS ORDERED: ZOLO50TA PO (09:57)
[2024-06-13] MEDS ORDERED: PRENTAB29 PO (09:57)
[2024-06-13] MEDS ORDERED: OMEP40CA4 PO (09:57)
[2024-06-13] MEDS ORDERED: HOME MED LIST COMPLETE! XX SCH (10:00)
[2024-06-13] MEDS ORDERED: LIDOCAINE 1% MDV 20ML VIAL INFIL PRN (10:15)
[2024-06-13 10:48] LABS: HEMATOCRIT 39.3 % (36.0-47.0); HEMOGLOBIN 13.3 g/dl (12.0-15.5); MEAN CORPUSCULAR HEMOGLOBIN 30.4 pg (27.0-33.0); MEAN CORPUSCULAR HGB CONC 33.8 g/dl (32.0-36.5); MEAN CORPUSCULAR VOLUME 89.9 fl (80.0-96.0); PLATELET COUNT, AUTOMATED 152 10^3/uL (150-450); RED BLOOD COUNT 4.37 10^6/uL (4.00-5.40); WHITE BLOOD COUNT 12.5 10^3/uL (4.0-10.0)
[2024-06-13] MEDS: LR 1,000 ML IV SCH (13:06)
[2024-06-13] MEDS ORDERED: FENTANYL 2MCG/ML ROPIVACAINE 0.2% IN 0.9% NACL 100ML IVBAG As Ordered ONE (13:08)
[2024-06-13] MEDS ORDERED: NALOXONE INJ 0.4MG/1ML VIAL IV PRN (13:15)
[2024-06-13] MEDS ORDERED: diphenhydrAMINE 50MG/ML VIAL IV PRN (13:15)
[2024-06-13] MEDS ORDERED: LR 500 ML IV PRN (13:15)
[2024-06-13] MEDS ORDERED: EPIDURAL/PCA KEYS XX PRN (13:15)
[2024-06-13] MEDS: FENTANYL/ROPIVACAINE/NACL BAG 100 ML EPIDURAL SCH (13:49)
[2024-06-13] MEDS: ePHEDrine SULFATE 25 MG/5 ML(5MG/ML) SYRINGE IVP PRN (14:22)
[2024-06-13] MEDS: ONDANSETRON 4MG 2ML VIAL IV PRN (14:25)
[2024-06-13] MEDS: OXYTOCIN DRIP 30 UNITS in IV 1 EA IV PRN (15:49)
[2024-06-13] MEDS ORDERED: METHYLERGONOVINE MALEATE 0.2 MG TAB PO PRN (16:05)
[2024-06-13] MEDS ORDERED: ACETAMINOPHEN 325 MG TAB PO PRN (16:05)
[2024-06-13] MEDS ORDERED: IBUPROFEN 600MG TAB PO PRN (16:05)
[2024-06-13] MEDS ORDERED: DOCUSATE SODIUM 100MG CAPSULE PO PRN (16:05)
[2024-06-13] MEDS ORDERED: RHOGAM 300MCG (1500IU) INJ IM SCH (16:05)
[2024-06-13] MEDS: SERTRALINE HCL 50 MG TAB PO SCH (19:08)
[2024-06-13] MEDS: OMEPRAZOLE 20MG CAP PO SCH (19:08)
[2024-06-13] MEDS: DIBUCAINE 1% OINTMENT 30GM TOP PRN (19:52)
[2024-06-13] MEDS: ACETAMINOPHEN 500 MG TAB PO PRN (22:27)
[2024-06-13] MEDS: CALCIUM CARBONATE 500 MG CHEW U/D PO PRN (22:50)
[2024-06-14 06:00] VITALS: BP 132/68; O2SAT 98
[2024-06-14] MEDS: IBUPROFEN 800 MG TAB PO PRN (06:13)
[2024-06-14] MEDS: PRENATAL VITAMINS CHEWABLE TABLET PO SCH (09:00)
[2024-06-14] MEDS ORDERED: IBUP80TA PO (13:38)
[2024-06-14] MEDS ORDERED: ACET-683 PO (13:38)
[2024-06-14 18:00] VITALS: BP 127/74; O2SAT 98
[2024-06-15 05:48] VITALS: BP 128/83; O2SAT 97
[2024-06-15] MEDS: MEASLES,MUMPS,RUBELLA VACCINE INJ (MMR-II) SC.IMMUN ONE (09:00)
== END 2024-06-15 16:37 | disposition home or self-care (01) | DRG 560 ==
LOC: M LDO 09:47 → M LDI 10:08 → M OBS 18:03
PROVIDERS: ADMIT Specialist; ATTEND Specialist
PROC: 10E0XZZ Delivery of Products of Conception, External Approach (ICD-10-PCS; principal; 2024-06-13)
DX: O48.0 Post-term pregnancy (principal); Z91.018 Allergy to other foods; Z37.0 Single live birth; Z3A.40 40 weeks gestation of pregnancy

== ENCOUNTER 2024-11-01 10:04 | Day surgery (SDC) | payer OTHER ==
[~2024-11-01] VITALS: Ht 162.6 cm; Wt 100.2 kg
[~2024-11-01 10:04] MED LIST changes: +ACET-683 PO; +BUSP5TA PO; +IBUP80TA PO; +KETOROLAC 30 MG/ML 1ML VIAL As Ordered ONE; +LIDOCAINE 2% 100MG/5ML SDV (FOR ANES.) As Ordered ONE; +OMEP-611 PO; -OMEP20TA2 PO; +OMEP40CA4 PO; +ONDANSETRON 4MG 2ML VIAL As Ordered ONE; +PRENTAB29 PO; +ROCURONIUM BROMIDE 50MG/5ML VIAL As Ordered ONE; +SUGAMMADEX SODIUM 500 MG/5 ML VIAL (BRIDION) As Ordered ONE; +TUMS500C PO; +ZOLO50TA PO; +propofoL 200 MG/20 ML VIAL As Ordered ONE
[2024-11-01 10:43] LABS: HEMATOCRIT 47.8 % (36.0-47.0); MEAN CORPUSCULAR HEMOGLOBIN 28.6 pg (27.0-33.0); MEAN CORPUSCULAR HGB CONC 33.5 g/dl (32.0-36.5); MEAN CORPUSCULAR VOLUME 85.5 fl (80.0-96.0); PLATELET COUNT, AUTOMATED 201 10^3/uL (150-450); RED BLOOD COUNT 5.59 10^6/uL (4.00-5.40); WHITE BLOOD COUNT 6.5 10^3/uL (4.0-10.0)
[2024-11-01] MEDS ORDERED: MIDAZOLAM INJ 2MG/2ML VIAL As Ordered ONE (11:05)
[2024-11-01] MEDS ORDERED: ACETAMINOPHEN 1000MG/100ML IV BAG As Ordered ONE (11:05)
[2024-11-01] MEDS ORDERED: fentaNYL 100 MCG/2 ML INJECTION As Ordered ONE (11:05)
[2024-11-01] MEDS ORDERED: HYDROmorphone HCL 2MG/ML 1ML VIAL As Ordered ONE (11:55)
[2024-11-01] MEDS ORDERED: fentaNYL 100 MCG/2 ML INJECTION IV PRN (12:10)
[2024-11-01] MEDS: ONDANSETRON 4MG 2ML VIAL IV PRN (12:28)
[2024-11-01] MEDS ORDERED: IBUP-1022 PO (12:34)
[2024-11-01] MEDS ORDERED: OXYC1TAB23 PO (12:38)
[2024-11-01] MEDS: METOCLOPRAMIDE INJ 10MG/2ML VIAL IV STA (12:40)
[2024-11-01] MEDS: oxyCODONE 5MG TAB PO PRN (12:58)
[2024-11-01 13:55] VITALS: BP 116/64; TEMP 97.4; O2SAT 98
== END 2024-11-01 14:30 | disposition home or self-care (01) ==
LOC: M SDC 10:04
PROVIDERS: ATTEND Specialist
DX: Z30.2 Encounter for sterilization (principal); E78.00 Pure hypercholesterolemia, unspecified; K58.9 Irritable bowel syndrome, unspecified; Z79.899 Other long term (current) drug therapy; K21.9 Gastro-esophageal reflux disease without esophagitis; F41.9 Anxiety disorder, unspecified; F32.A Depression, unspecified; Z91.018 Allergy to other foods
CPT/HCPCS: 36415; 58661; 85027; 88302; J0131; J0665; J1100; J1171; J1885; J2250; J2405; J2765; J3010